=== PATIENT | male | born 2000 | race Caucasian/White ===

== ENCOUNTER 2022-02-11 10:34 | Emergency (ER) | payer OTHER ==
[2022-02-11 10:56] VITALS: BP 133/72; PULSE 91; RESP 17; TEMP 98.1; BMI 30.7
== END 2022-02-11 12:02 | disposition home or self-care (01) ==
LOC: JER 10:34
DX: B04 Monkeypox (principal)
CPT/HCPCS: 36415; 87593; 99283-25